=== PATIENT | female | born 1965 | race Caucasian/White ===

== ENCOUNTER 2023-09-11 22:47 | Emergency (ER) | payer BC ==
[~2023-09-11] VITALS: Ht 172.7 cm; Wt 72.7 kg
[2023-09-11 22:53] VITALS: TEMP 98.4
[2023-09-11 23:59] VITALS: BP 133/66; PULSE 81
== END 2023-09-12 00:09 | disposition home or self-care (01) ==
LOC: COL.ER 22:47
DX: L84 Corns and callosities (principal)

== ENCOUNTER 2023-11-11 17:48 | Emergency (ER) | payer BC ==
[~2023-11-11] VITALS: Ht 172.7 cm; Wt 68.2 kg
[2023-11-11 17:59] VITALS: BP 132/71; TEMP 98.3
[2023-11-11] MEDS ORDERED: AMOXICILLIN 50500 MG PO (19:29)
[2023-11-11] MEDS ORDERED: Amoxicillin 500 MG CAP PO ONE (19:30)
[2023-11-11 20:16] VITALS: PULSE 78
== END 2023-11-11 20:16 | disposition home or self-care (01) ==
LOC: COL.ER 17:48
DX: K04.7 Periapical abscess without sinus (principal); K06.9 Disorder of gingiva and edentulous alveolar ridge, unspecified; F17.200 Nicotine dependence, unspecified, uncomplicated